=== PATIENT | male | born 1995 | race Caucasian/White ===

== ENCOUNTER 2019-08-27 21:57 | Emergency (ER) | payer BC ==
[~2019-08-27] VITALS: Ht 167.6 cm; Wt 68.0 kg
[2019-08-27 22:30] VITALS: BP_SYST 125
--- NOTE | 2019-08-27 22:30 | NUR ---
Patient triaged and placed in waiting room. VSS and patient appears in no acute distress at this time. Accompanied by GIRLFRIEND, awaiting available bed, and MD notified of need for MSE.
--- NOTE | 2019-08-28 01:51 | NUR ---
Patient to ER bed 05 to gown for evaluation. Side rails up.
--- NOTE | 2019-08-28 02:26 | NUR ---
PATIENT BROUGHT IN COMPLAINING OF DOG BITE TO RIGHT HAND. PATIENT REPORTS HIS OWN DOG BITE HIS RIGHT HAND 2 PUNCTURE WOUNDS NOTED TO THE PALM AND LACERATION IN THE WEBBING SPACE OF THE 4TH AND 5TH FINGER. DENIES ANY PAIN. NO OTHER COMPLAINTS/INJURIES PER PATIENT OR NOTED. WILL CONTINUE TO MONITOR.
--- NOTE | 2019-08-28 02:30 | NUR ---
RIGHT HAND PLACED IN STERILE WATER AND IODINE SOLUTION FOR CLEANING. PATIENT TOLERATED WELL
[2019-08-28] MEDS: LIDOCAINE 1% 10 MG/ML, 20 ML MDV INJ ONE (03:05)
--- NOTE | 2019-08-28 03:05 | NUR ---
DR HOOVER AT BEDSIDE FOR LACERATION REPAIR
[2019-08-28] MEDS ORDERED: LIDOCAINE 1%, 20 ML MDV 20 ML ONE (03:21)
--- NOTE | 2019-08-28 03:43 | NUR ---
Patient given written and verbal discharge instructions and verbalizes understanding. ER MD discussed with patient the results and treatment provided. Patient in stable condition. ID arm band removed. Rx of AUGMENTIN AND ACETAMINOPHEN given. Patient educated on pain management and to follow up with PMD. Pain Scale 0/10 Opportunity for questions provided and answered. Medication side effect fact sheet provided.
[2019-08-28] MEDS: DIPH-TET-PERTUS Vaccine 0.5 ML VIAL (ADACEL) I.M. ONE (03:44)
[2019-08-28] MEDS: AMOXICILLIN/CLAVULANATE POTASSIUM 875 MG TABLET PO ONE (03:45)
[2019-08-28] MEDS: BACITRACIN ZINC 15 GM TOPICAL OINTMENT TP ONE (03:45)
[2019-08-28 03:46] VITALS: BP_SYST 118
[2019-08-28] MEDS ORDERED: BACITRACIN 1 GM OINT TP ONE (03:53)
== END 2019-08-28 03:46 | disposition home or self-care (01) ==
LOC: SED 21:57
DX: S61.411A Laceration without foreign body of right hand, initial encounter (principal); W54.0XXA Bitten by dog, initial encounter; Y93.89 Activity, other specified; Y92.89 Other specified places as the place of occurrence of the external cause; Y99.8 Other external cause status
CPT/HCPCS: 12001; 90471; 90715; 99283; J2001